=== PATIENT | male | born 1995 | race Caucasian/White ===

== ENCOUNTER 2018-01-28 18:09 | Emergency (ER) | payer SELFPAY ==
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
[2018-01-28] MEDS ORDERED: NORMAL SALINE 1000 ML 1,000 ML IV ONE ×2 (19:11→23:21)
[2018-01-28] MEDS ORDERED: HALOPERIDOL LACTATE INJ 5 MG/1 ML VIAL IV ONE (19:11)
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
[2018-01-28 20:41] LABS: ABSOLUTE LYMPHOCYTES (AUTO) 1.7 10^3/uL (0.5-4.7); ABSOLUTE MONOCYTES (AUTO) 1.2 10^3/uL (0.1-1.4); ABSOLUTE NEUT (AUTO) 5.7 10^3/uL (1.7-8.2); BASOPHILS % (AUTO) 0.6 % (0-2); HEMATOCRIT 34.9 % (37.9-51.0); LYMPHOCYTES % (AUTO) 19.6 % (13-45); MEAN CORPUSCULAR HGB CONC 34.5 g/dL (32.0-36.0); MEAN CORPUSCULAR VOLUME 87 fl (80-97); MONOCYTES % (AUTO) 13.5 % (3-13); PLATELET COUNT 213 10^3/uL (150-450); RED BLOOD COUNT 4.01 10^6/uL (4.35-5.55); RED CELL DISTRIBUTION WIDTH 13.2 % (11.5-14.0); SEGMENTED NEUTROPHILS % (AUTO) 66.3 % (42-78); TOTAL CELLS COUNTED % (AUTO) 100 %; WHITE BLOOD COUNT 8.6 10^3/uL (4.0-10.5)
[2018-01-28 20:46] LABS: AMORPHOUS SEDIMENT,URINE TRACE /HPF; APPEARANCE,URINE SLIGHTLY-CLOUDY; BILIRUBIN,URINE NEGATIVE (NEGATIVE); COLOR,URINE YELLOW; GLUCOSE, URINE NEGATIVE (NEGATIVE); KETONES,URINE TRACE mg/dL (NEGATIVE); LEUKOCYTE ESTERASE,URINE NEGATIVE (NEGATIVE); NITRITE,URINE NEGATIVE (NEGATIVE); PROTEIN,URINE >=500 mg/dL (NEGATIVE); URINE SPECIFIC GRAVITY 1.029; UROBILINOGEN,URINE NEGATIVE mg/dL (<2.0)
[2018-01-28 20:56] LABS: ALANINE AMINOTRANSFERASE 25 U/L (21-72); ALBUMIN 4.1 g/dL (3.5-5.0); ALKALINE PHOSPHATASE 73 U/L (38-126); ANION GAP 11 (5-19); ASPARTATE AMINO TRANSFERASE 41 U/L (17-59); BILIRUBIN,DIRECT 0.4 mg/dL (0.0-0.4); BILIRUBIN,TOTAL 0.4 mg/dL (0.2-1.3); BLOOD UREA NITROGEN 20 mg/dL (7-20); CALCIUM 9.3 mg/dL (8.4-10.2); CARBON DIOXIDE 29 mmol/L (22-30); CHLORIDE 106 mmol/L (98-107); GLUCOSE 101 mg/dL (75-110); POTASSIUM 4.5 mmol/L (3.6-5.0); SODIUM 146.3 mmol/L (137-145); TOTAL PROTEIN 6.7 g/dL (6.3-8.2)
[2018-01-28 21:01] LABS: ACETAMINOPHEN < 10 ug/mL (10-30); ALCOHOL < 10 mg/dL (NONE DETECTED); SALICYLATE < 1.0 mg/dL (2.0-20.0)
[2018-01-28 21:04] LABS: URINE AMPHETAMINES SCREEN NEGATIVE; URINE BARBITURATES SCREEN NEGATIVE; URINE BENZODIAZEPINES SCREEN NEGATIVE; URINE COCAINE SCREEN NEGATIVE; URINE MARIJUANA (THC) SCREEN NEGATIVE; URINE METHADONE SCREEN NEGATIVE; URINE PHENCYCLIDINE SCREEN NEGATIVE
[2018-01-29 06:04] VITALS: BP 99/46
--- NOTE | 2018-01-29 07:59 | EKG REPORT ---
SEVERITY:- ABNORMAL ECG - SINUS RHYTHM CONSIDER LEFT VENTRICULAR HYPERTROPHY ST ELEV, PROBABLE NORMAL EARLY REPOL PATTERN BORDERLINE PROLONGED QT INTERVAL : Confirmed by: Suzanne Ruiz MD 29-Jan-2018 07:58:28
--- NOTE | 2018-01-29 09:30 | ER Document Report ---
Doctor's Note Notes: 01/29/18 09:29 This is a follow-up evaluation: Primary diagnosis-anxiety Patient is here for the above reason, has been doing well, currently has --- complaint. On examination-vitals reviewed in the chart. General exam: Alert oriented 3 not in any acute distress HEENT: Normocephalic atraumatic pupils are equal reactive to light, Lungs-clear breath sounds no rales or wheezing. Cardiovascular system: Normal S1-S2 no murmurs. Gastrointestinal: Normal breath sounds, no organomegaly positive bowel sounds. Genitourinary: Skin: No lesions noted, no rash Psychiatric: Diagnoses: Anxiety, oral folliculitis Plan: Discharge him on Bactrim, mental health department given the clearance for discharge.
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
== END 2018-01-29 09:45 | disposition home or self-care (01) ==
LOC: ER 18:09
DX: F15.182 Other stimulant abuse with stimulant-induced sleep disorder (principal); E87.6 Hypokalemia; F41.9 Anxiety disorder, unspecified; L73.9 Follicular disorder, unspecified; I95.9 Hypotension, unspecified; R11.0 Nausea; F90.9 Attention-deficit hyperactivity disorder, unspecified type; F17.200 Nicotine dependence, unspecified, uncomplicated; Z88.1 Allergy status to other antibiotic agents
CPT/HCPCS: 93005; 99284; 96361; 96374; 36415; 80307 ×4; 85025; 80053; 81001; 93010; J1630; J7030

== ENCOUNTER 2018-03-26 09:38 | Emergency (ER) | payer SELFPAY ==
[2018-03-26 09:44] VITALS: BP 112/68
[2018-03-26] MEDS ORDERED: PENICILLIN V POTASSIUM 500 MG TABLET PO ONE (10:06)
--- NOTE | 2018-03-26 10:09 | ER Document Report ---
ED General - General Chief Complaint: Pain All Over Stated Complaint: JOINT PAIN, WEIGHT LOSS Time Seen by Provider: 03/26/18 09:56 TRAVEL OUTSIDE OF THE [place] IN LAST 30 DAYS: No - HPI Patient complains to provider of: Pain all over weight loss dental pain Notes: Patient coming in for pain and liver weight loss dental pain. Patient additionally was not able to be found in the waiting room area because he was outside smoking. After patient returned from smoking was able to evaluate the patient in the triage area. Patient states symptoms ongoing for greater than 24 hours. Patient states he is on psychiatric medications to that he is out of right now patient states he is on Vyvanse has a history of abusing his Vyvanse. Patient also states history of multiple dental abscesses and dental removal however patient states he is unable to follow up any further dentist as it cost him 300 bucks per tooth. Patient denies any shortness of breath cough chest pain abdominal pain nausea vomiting diarrhea. Patient states pain all over. Patient also states he has lost approximately 15 pounds in the last 3 days. Patient otherwise is resting patient states that he has been tested for HIV and has been negative last 2 months. - Related Data Allergies/Adverse Reactions: clindamycin Allergy (Verified 01/28/18 18:15) Past Medical History - Social History Smoking Status: Current Every Day Smoker Chew tobacco use (# tins/day): No Frequency of alcohol use: None Drug Abuse: Heroin, Prescription drugs Family History: Reviewed & Not Pertinent Patient has suicidal ideation: No Patient has homicidal ideation: No Renal/ Medical History: Denies: Hx Peritoneal Dialysis Psychiatric Medical History: Reports: Hx Attention Deficit Hyperactivity Disorder Past Surgical History: Reports: Hx Oral Surgery - Jaw Review of Systems - Review of Systems Constitutional: Other - Weight loss generalized weakness dental pain EENT: No symptoms reported Cardiovascular: No symptoms reported Respiratory: No symptoms reported Gastrointestinal: No symptoms reported Genitourinary: No symptoms reported Male Genitourinary: No symptoms reported Musculoskeletal: No symptoms reported Skin: No symptoms reported Hematologic/Lymphatic: No symptoms reported Neurological/Psychological: No symptoms reported -: Yes All other systems reviewed and negative Physical Exam - Vital signs Vitals: Temp Pulse Resp BP Pulse Ox 98.4 F 76 12 112/68 97 03/26/18 09:42 03/26/18 09:42 03/26/18 09:42 03/26/18 09:42 03/26/18 09:42 Interpretation: Normal - General General appearance: Appears well, Alert, Other - Under weight - HEENT Head: Normocephalic, Atraumatic Eyes: Normal Pupils: PERRL Notes: There is a cellulitis along the 30th 29th tooth no signs of abscess formation. Patient has diffuse dental disease - Respiratory Respiratory status: No respiratory distress Chest status: Nontender Breath sounds: Normal Chest palpation: Normal - Cardiovascular Rhythm: Regular Heart sounds: Normal auscultation Murmur: No - Abdominal Inspection: Normal Distension: No distension Bowel sounds: Normal Tenderness: Nontender Organomegaly: No organomegaly - Back Back: Normal, Nontender - Extremities General upper extremity: Normal inspection, Nontender, Normal color, Normal ROM , Normal temperature General lower extremity: Normal inspection, Nontender, Normal color, Normal ROM , Normal temperature, Normal weight bearing. No: Saba's sign - Neurological Neuro grossly intact: Yes Cognition: Normal Orientation: AAOx4 [place] Coma Scale Eye Opening: Spontaneous Carson Coma Scale Verbal: Oriented Carson Coma Scale Motor: Obeys Commands [place] Coma Scale Total: 15 Speech: Normal Motor strength normal: LUE, RUE, LLE, RLE Sensory: Normal - Psychological Associated symptoms: Normal affect, Normal mood - Skin Skin Temperature: Warm Skin Moisture: Dry Skin Color: Normal Course - Re-evaluation Re-evalutation: 03/26/18 20:47 Reviewed the patient's previous visit shows weight at 57 kg today 5.2. No signs of a 15 pound weight loss. Examination the mouth does reveal gingival cellulitis without abscess formation. Patient will be discharged home on Pen- Vee K. Patient was encouraged to follow primary care physician. Patient asking for refill of his Vyvanse I declined them at this time. - Vital Signs Vital signs: Temp Pulse Resp BP Pulse Ox 98.4 F 76 12 112/68 97 03/26/18 09:42 03/26/18 09:42 03/26/18 09:42 03/26/18 09:42 03/26/18 09:42 Discharge - Discharge Clinical Impression: Cellulitis of gingiva Arthralgia Qualifiers: Joint pain location: unspecified Qualified Code(s): M25.50 - Pain in unspecified joint Condition: Good Disposition: HOME, SELF-CARE Instructions: Arthritis ([facility]), Dentist, Dental Infection or Abscess ([facility]) Additional Instructions: Physical examination does not reveal any critical pathology seen here in the emergency room. Would highly recommend following up with the clinics provided. I will have our social research assistant call you within the next 24-48 hours to make sure that we can establish follow-up care. Examination of the mouth does reveal poor dentition and beginning of an infection of the gumline. Please take the antibiotics as prescribed. I would highly recommend that she stop smoking. Follow-up with your psychiatric provider for for the medication refills. Prescriptions: Penicillin V Potassium [Penicillin Vk 500 mg Tablet] 500 mg PO BID #20 tablet Forms: Smoking Cessation Education
== END 2018-03-26 10:14 | disposition home or self-care (01) ==
LOC: ER 09:38
DX: K12.2 Cellulitis and abscess of mouth (principal); M25.50 Pain in unspecified joint; K08.89 Other specified disorders of teeth and supporting structures; R63.4 Abnormal weight loss; Z79.899 Other long term (current) drug therapy; F17.200 Nicotine dependence, unspecified, uncomplicated
CPT/HCPCS: 99283